=== PATIENT | female | born 1950 | race Caucasian/White ===

== ENCOUNTER 2017-10-05 06:32 | Day surgery (SDC) | payer MEDICARE, OTHER ==
[~2017-10-05 06:32] MED LIST: KETOROLAC TROMETHAMINE 0.45% 4 DROP/0.4 ML DROPERETTE ONE; KETOROLAC TROMETHAMINE 0.45% 4 DROP/0.4 ML DROPERETTE OS PRN; TETRACAINE HCL 0.5% OPH SOLN 2 ML ONE
[2017-10-05] MEDS: TETRACAINE HCL 0.5% OPH SOLN 2 ML OS PRN ×4 (07:03→07:58)
[2017-10-05] MEDS: CYCLOPENTOLATE 0.2%/PHENYLEPHRINE 1% OPH SOLN 2 ML OS PRN ×3 (07:04→07:28)
[2017-10-05] MEDS: TROPICAMIDE 1% OPH SOLN 3 ML OS PRN ×3 (07:04→07:28)
[2017-10-05] MEDS ORDERED: MIDAZOLAM 2 MG/2 ML INJ ONE (07:04)
[2017-10-05] MEDS: BESIFLOXACIN HCL 0.6% OPH SUSP 5 ML BOTTLE OS PRN ×4 (07:05→08:22)
[2017-10-05] MEDS: CHONDR SU A NA/HYALUR INTRAOC KIT (SURGICARE) ONE ×2 (08:12)
[2017-10-05] MEDS: EPINEPHRINE INJ/PF 1 MG/1 ML AMPULE ONE ×2 (08:12)
[2017-10-05] MEDS: LIDOCAINE 1% INJ-PF (10 MG/ML) 30 ML SDV ONE ×2 (08:12)
--- NOTE | 2017-10-05 19:10 | [facility] OPERATIVE REPORT E ---
[facility] Operative Report NAME: MARISELA HAMEED AGE: 67Y DATE OF SURGERY: 10/05/2017 ROOM: PREOPERATIVE DIAGNOSIS: CATARACT, LEFT EYE. POSTOPERATIVE DIAGNOSIS: CATARACT, LEFT EYE. OPERATION: Cataract extraction with insertion of an IOL of the left eye. SURGEON: JAH INIGUEZ M.D. ANESTHESIA: Topical. PROCEDURE: After obtaining appropriate consent, the patient's left eye was prepped and draped in sterile fashion as well as the surgeon in a sterile manner and cataract surgery was started. First a paracentesis blade was used to make a side-port incision. Viscoelastic was used to inflate the anterior chamber. Next a 2.4 mm incision was made with a 2.4 mm blade, clear corneal temporally. A continuous capsulorrhexis was made using a cystotome and Utrata forceps. Following this hydrodissection was carried out to make the lens fully loose and mobile and it was rotated 90 degrees. Following this, a jpfttb-rwu-qqphhvg technique was used to phacoemulsify the lens with a CDE of 3.28. The remaining cortex was removed with irrigation/aspiration. Provisc was instilled into the capsular bag to inflate the bag. A SN60WF, 23.0 diopter lens was placed. The remaining viscoelastic material was removed with irrigation/aspiration. Following this, the incision was found to be watertight. Besivance was instilled into the eye and a protective shield was placed over the eye. The patient returned to the postoperative recovery in stable condition. DICTATING PHYSICIAN: JAH INIGUEZ M.D. [id number] [id number] PHY#: [id number] ID: [id number] JOB#: [id number] ACCT: [id number] cc:JAH INIGUEZ M.D. >
--- NOTE | 2017-10-05 19:11 | [facility] DISCHARGE SUMMARY E ---
[facility] Discharge Summary NAME: MARISELA HAMEED AGE: 67Y ADMITTED: 10/05/2017 DISCHARGED: 10/05/2017 HOSPITAL COURSE: This is a 67-year-old female who underwent cataract extraction of the left eye. DIAGNOSIS: CATARACT, LEFT EYE. She underwent surgery because she was having trouble seeing road signs. DISCHARGE INSTRUCTIONS: She should be on a regular diet. No bending at her waist, no heavy lifting. She should use her Besivance, Ilevro, and Durezol at 3 p.m. and 8 p.m. and sleep with a rigid shield. I will see her for her 1 day postoperative tomorrow. DICTATING PHYSICIAN: JAH INIGUEZ M.D. [id number] [id number] PHY#: [id number] ID: [id number] JOB#: [id number] ACCT: [id number] cc:JAH INIGUEZ M.D. >
== END 2017-10-05 09:00 | disposition home or self-care (01) ==
LOC: SC 06:32
PROVIDERS: ATTEND Internal Medicine
DX: H25.812 Combined forms of age-related cataract, left eye (principal); I10 Essential (primary) hypertension; E11.9 Type 2 diabetes mellitus without complications; E07.9 Disorder of thyroid, unspecified; D64.9 Anemia, unspecified; G47.30 Sleep apnea, unspecified; I47.1 Supraventricular tachycardia; I49.3 Ventricular premature depolarization; Z79.899 Other long term (current) drug therapy; Z87.891 Personal history of nicotine dependence; Z79.84 Long term (current) use of oral hypoglycemic drugs
CPT/HCPCS: 66984; 82962; V2632; J2250; J3490 ×2; A9270; J0171; 142

== ENCOUNTER 2017-11-02 08:42 | Day surgery (SDC) | payer MEDICARE ==
[~2017-11-02 08:42] MED LIST changes: +KETOROLAC TROMETHAMINE 0.45% 4 DROP/0.4 ML DROPERETTE OD PRN; -KETOROLAC TROMETHAMINE 0.45% 4 DROP/0.4 ML DROPERETTE ONE; -KETOROLAC TROMETHAMINE 0.45% 4 DROP/0.4 ML DROPERETTE OS PRN; +MIDAZOLAM 2 MG/2 ML INJ ONE; -TETRACAINE HCL 0.5% OPH SOLN 2 ML ONE
[2017-11-02] MEDS: TROPICAMIDE 1% OPH SOLN 3 ML OD PRN ×3 (09:07→09:27)
[2017-11-02] MEDS: CYCLOPENTOLATE 0.2%/PHENYLEPHRINE 1% OPH SOLN 2 ML OD PRN ×3 (09:07→09:27)
[2017-11-02] MEDS: BESIFLOXACIN HCL 0.6% OPH SUSP 5 ML BOTTLE OD PRN ×5 (09:07→10:10)
[2017-11-02] MEDS: TETRACAINE HCL 0.5% OPH SOLN 2 ML OD PRN ×3 (09:08→09:53)
[2017-11-02] MEDS: EPINEPHRINE INJ/PF 1 MG/1 ML AMPULE ONE ×2 (09:56→10:00)
[2017-11-02] MEDS: LIDOCAINE 1% INJ-PF (10 MG/ML) 30 ML SDV ONE ×2 (09:56→10:00)
[2017-11-02] MEDS: CHONDR SU A NA/HYALUR INTRAOC KIT (SURGICARE) ONE ×2 (09:56→10:00)
--- NOTE | 2017-11-02 20:45 | [facility] OPERATIVE REPORT E ---
[facility] Operative Report NAME: MARISELA HAMEED AGE: 67Y DATE OF SURGERY: 11/02/2017 ROOM: PREOPERATIVE DIAGNOSIS: CATARACT, RIGHT EYE. POSTOPERATIVE DIAGNOSIS: CATARACT, RIGHT EYE. OPERATION: Cataract extraction with insertion of an IOL of the right eye. SURGEON: JAH INIGUEZ M.D. ANESTHESIA: Topical. PROCEDURE: After obtaining appropriate consent, the patient's right eye was prepped and draped in sterile fashion as well as the surgeon in a sterile manner and cataract surgery was started. First a paracentesis blade was used to make a side-port incision. Viscoelastic was used to inflate the anterior chamber. Next a 2.4 mm incision was made with a 2.4 mm blade, clear corneal temporally. A continuous capsulorrhexis was made using a cystotome and Utrata forceps. Following this hydrodissection was carried out to make the lens fully loose and mobile and it was rotated 90 degrees. Following this, a xsbpux-bfk-pnmvupx technique was used to phacoemulsify the lens with a CDE of 5.08. The remaining cortex was removed with irrigation/aspiration. Provisc was instilled into the capsular bag to inflate the bag. A SN60WF, 21.5 diopter lens was placed. The remaining viscoelastic material was removed with irrigation/aspiration. Following this, the incision was found to be watertight. Besivance was instilled into the eye and a protective shield was placed over the eye. The patient returned to the postoperative recovery in stable condition. DICTATING PHYSICIAN: JAH INIGUEZ M.D. [id number] PHY#: [id number] ID: [id number] JOB#: [id number] ACCT: [id number] cc:JAH INIGUEZ M.D. >
--- NOTE | 2017-11-02 20:45 | [facility] DISCHARGE SUMMARY E ---
[facility] Discharge Summary NAME: MARISELA HAMEED AGE: 67Y ADMITTED: 11/02/2017 DISCHARGED: 11/02/2017 FINAL DIAGNOSIS: Cataract, right eye. HOSPITAL COURSE: This is a 67-year-old female who underwent cataract extraction of the right eye. She underwent surgery because she was having difficulty reading, driving and watching television. DISCHARGE INSTRUCTIONS: She should be on a regular diet. No bending at her waist. No heavy lifting. She should use her Besivance, Ilevro and Durezol at 3:00 p.m. and 8:00 p.m. Sleep with a rigid shield. I will see her for a 1-day postoperative tomorrow. DICTATING PHYSICIAN: JAH INIGUEZ M.D. [id number] PHY#: [id number] ID: [id number] JOB#: [id number] ACCT: [id number] cc:JAH INIGUEZ M.D. >
== END 2017-11-02 10:55 | disposition home or self-care (01) ==
LOC: SC 08:42
PROVIDERS: ATTEND Internal Medicine
DX: H25.811 Combined forms of age-related cataract, right eye (principal); Z96.1 Presence of intraocular lens; E11.9 Type 2 diabetes mellitus without complications; D64.9 Anemia, unspecified; E07.9 Disorder of thyroid, unspecified; G47.30 Sleep apnea, unspecified; I10 Essential (primary) hypertension; R00.2 Palpitations; Z79.84 Long term (current) use of oral hypoglycemic drugs; Z79.899 Other long term (current) drug therapy; Z87.891 Personal history of nicotine dependence
CPT/HCPCS: 66984; 82962; V2632; J2250; J3490 ×2; A9270; J0171; 142